=== PATIENT | male | born 1975 | race Caucasian/White ===

== ENCOUNTER 2018-08-21 12:59 | Emergency (ER) | payer MEDICARE, MEDICAID ==
[2018-08-21] MEDS ORDERED: IPRATROPIUM/ALBUTEROL 0.5-2.5 MG/3 ML AMPUL NEB ONE ×2 (14:32→15:34)
[2018-08-21] MEDS ORDERED: METHYLPREDNISOLONE INJ 125 MG/2 ML SDV IV ONE (14:33)
[2018-08-21] MEDS ORDERED: MAGNESIUM SULFATE/D5W 1 GM/100 ML RTUPB IV ONE (14:34)
--- NOTE | 2018-08-21 14:35 | ER Document Report ---
ED Medical Screen (RME) - General Chief Complaint: Cough Stated Complaint: ACHING Time Seen by Provider: 08/21/18 14:31 Mode of Arrival: Ambulatory Information source: Patient Notes: This is a 43-year-old man with a history of obstructive sleep apnea, COPD (continues to smoke), presents to the emergency room with shortness of breath, persistent cough, sore throat, ear pain. Patient states he just returned from [place]. He states his symptoms started with nasal congestion. TRAVEL OUTSIDE OF THE [place] IN LAST 30 DAYS: Yes - Related Data Allergies/Adverse Reactions: Penicillins Allergy (Mild, Verified 08/21/18 14:30) fluticasone [From Advair Diskus] Allergy (Verified 08/21/18 14:30) swelling salmeterol [From Advair Diskus] Allergy (Verified 08/21/18 14:30) swelling Past Medical History - Social History Chew tobacco use (# tins/day): No Frequency of alcohol use: None Drug Abuse: None - Past Medical History Cardiac Medical History: Reports: Hx Hypercholesterolemia, Hx Hypertension Pulmonary Medical History: Reports: Hx Asthma, Hx COPD, Hx Pneumonia Endocrine Medical History: Reports: Hx Diabetes Mellitus Type 1 Renal/ Medical History: Denies: Hx Peritoneal Dialysis Psychiatric Medical History: Reports: Hx Anxiety, Hx Depression Past Surgical History: Reports: Hx Abdominal Surgery - hernia - Immunizations Hx Diphtheria, Pertussis, Tetanus Vaccination: Yes - unk Physical Exam - Vital signs Vitals: Temp Pulse Resp BP Pulse Ox 99.4 F 96 20 148/70 H 91 L 08/21/18 13:35 08/21/18 13:35 08/21/18 13:35 08/21/18 13:35 08/21/18 13:35 Course - Vital Signs Vital signs: Temp Pulse Resp BP Pulse Ox 99.4 F 96 20 148/70 H 91 L 08/21/18 13:35 08/21/18 13:35 08/21/18 13:35 08/21/18 13:35 08/21/18 13:35
--- NOTE | 2018-08-21 15:02 | RADIOLOGY REPORT (SQ) ---
EXAM DESCRIPTION: CHEST 2 VIEWS COMPLETED DATE/TIME: 08/21/2018 2:44 pm REASON FOR STUDY: sob COMPARISON: 06/29/2016 EXAM PARAMETERS: NUMBER OF VIEWS: two views TECHNIQUE: Digital Frontal and Lateral radiographic views of the chest acquired. RADIATION DOSE: NA LIMITATIONS: none FINDINGS: LUNGS AND PLEURA: Interstitial markings are prominent but unchanged from prior study most likely chronic. No acute consolidation or effusions. No pneumothorax. MEDIASTINUM AND HILAR STRUCTURES: No masses or contour abnormalities. HEART AND VASCULAR STRUCTURES: Heart normal size. No evidence for failure. BONES: No acute findings. HARDWARE: None in the chest. OTHER: No other significant finding. IMPRESSION: Chronic changes bilaterally. No acute findings. TECHNICAL DOCUMENTATION: JOB ID: [id number] [employer] All Rights Reserved Reading location - IP/workstation name: [email or web address]
[2018-08-21 15:15] LABS: ABSOLUTE BASOPHILS # (AUTO) 0.1 10^3/uL (0.0-0.2); ABSOLUTE EOSINOPHILS # (AUTO) 0.2 10^3/uL (0.0-0.6); ABSOLUTE LYMPHOCYTES (AUTO) 1.3 10^3/uL (0.5-4.7); ABSOLUTE MONOCYTES (AUTO) 1.3 10^3/uL (0.1-1.4); ABSOLUTE NEUT (AUTO) 8.9 10^3/uL (1.7-8.2); BASOPHILS % (AUTO) 0.8 % (0-2); EOSINOPHILS % (AUTO) 1.5 % (0-6); HEMATOCRIT 43.1 % (37.9-51.0); HEMOGLOBIN 14.3 g/dL (13.5-17.0); LYMPHOCYTES % (AUTO) 10.7 % (13-45); MEAN CORPUSCULAR HEMOGLOBIN 28.8 pg (27.0-33.4); MEAN CORPUSCULAR HGB CONC 33.2 g/dL (32.0-36.0); MEAN CORPUSCULAR VOLUME 87 fl (80-97); MONOCYTES % (AUTO) 11.4 % (3-13); RED BLOOD COUNT 4.96 10^6/uL (4.35-5.55); RED CELL DISTRIBUTION WIDTH 14.9 % (11.5-14.0); SEGMENTED NEUTROPHILS % (AUTO) 75.6 % (42-78); TOTAL CELLS COUNTED % (AUTO) 100 %; WHITE BLOOD COUNT 11.8 10^3/uL (4.0-10.5)
[2018-08-21 15:33] LABS: ALANINE AMINOTRANSFERASE 29 U/L (21-72); ALKALINE PHOSPHATASE 92 U/L (38-126); ANION GAP 7 (5-19); ASPARTATE AMINO TRANSFERASE 29 U/L (17-59); BILIRUBIN,DIRECT 0.3 mg/dL (0.0-0.4); BILIRUBIN,TOTAL 0.5 mg/dL (0.2-1.3); BLOOD UREA NITROGEN 6 mg/dL (7-20); CALCIUM 8.4 mg/dL (8.4-10.2); CARBON DIOXIDE 33 mmol/L (22-30); CHLORIDE 98 mmol/L (98-107); GLUCOSE 95 mg/dL (75-110); POTASSIUM 4.7 mmol/L (3.6-5.0); SODIUM 138.4 mmol/L (137-145); TOTAL PROTEIN 6.9 g/dL (6.3-8.2)
[2018-08-21 16:14] LABS: PLATELET COUNT 228 10^3/uL (150-450)
[2018-08-21 17:23] LABS: A TYPE INFLUENZA AG NEGATIVE (NEGATIVE); B INFLUENZA AG NEGATIVE (NEGATIVE)
--- NOTE | 2018-08-21 18:41 | ER Document Report ---
ED General - General Chief Complaint: Cough Stated Complaint: ACHING Time Seen by Provider: 08/21/18 14:31 Primary Care Provider: DEONTE SINGH PA-C [Primary Care Provider] - Follow up as needed Mode of Arrival: Ambulatory TRAVEL OUTSIDE OF THE [place] IN LAST 30 DAYS: Yes - HPI Notes: Patient is a 43-year-old gentleman who presents to the emergency department for evaluation of cough, sore throat, difficulty breathing. He has a history of COPD and sleep apnea. He admits he is not completely compliant with his BiPAP. The patient did however, just returned on a flight from [place] yesterday. He denies any known fevers although he did state he felt chilled. He has had some nausea but no emesis. Normal bowel movements. He does have some pain in his upper abdomen bilaterally. He describes it as a soreness that is worse with coughing. - Related Data Allergies/Adverse Reactions: Penicillins Allergy (Mild, Verified 08/21/18 14:30) fluticasone [From Advair Diskus] Allergy (Verified 08/21/18 14:30) swelling salmeterol [From Advair Diskus] Allergy (Verified 08/21/18 14:30) swelling Past Medical History - General Information source: Patient, Relative - Social History Smoking Status: Current Every Day Smoker Chew tobacco use (# tins/day): No Frequency of alcohol use: None Drug Abuse: None Family History: Reviewed & Not Pertinent Patient has suicidal ideation: No Patient has homicidal ideation: No - Past Medical History Cardiac Medical History: Reports: Hx Hypercholesterolemia, Hx Hypertension Pulmonary Medical History: Reports: Hx Asthma, Hx COPD, Hx Pneumonia Endocrine Medical History: Reports: Hx Diabetes Mellitus Type 1 Renal/ Medical History: Denies: Hx Peritoneal Dialysis Psychiatric Medical History: Reports: Hx Anxiety, Hx Depression Past Surgical History: Reports: Hx Abdominal Surgery - hernia - Immunizations Hx Diphtheria, Pertussis, Tetanus Vaccination: Yes - unk Hx Pneumococcal Vaccination: 08/07/10 Review of Systems - Review of Systems Constitutional: Chills, Malaise EENT: Nose congestion, Throat pain Cardiovascular: No symptoms reported Respiratory: See HPI, Cough Gastrointestinal: See HPI Genitourinary: No symptoms reported Skin: No symptoms reported Neurological/Psychological: No symptoms reported Physical Exam - Vital signs Vitals: Temp Pulse Resp BP Pulse Ox 99.4 F 96 20 148/70 H 91 L 08/21/18 13:35 08/21/18 13:35 08/21/18 13:35 08/21/18 13:35 08/21/18 13:35 Notes: Reviewed, please refer to vital sign chart - Notes Notes: Vital signs reviewed, please refer to chart. Patient is normocephalic, atraumatic. Pupils equal round, reactive to light. Neck is supple without meningismus. Heart is regular rate and rhythm. Lungs are clear to auscultation bilaterally. Abdomen is soft, nontender, normoactive bowel sounds throughout. Extremities without cyanosis, clubbing, edema. Posterior calves are nontender. Peripheral pulses are equal. Skin is warm and dry. Patient is awake, alert, neurological exam is nonfocal. Course - Re-evaluation Re-evalutation: 08/21/18 18:40 Patient presents emergency department for evaluation of cough and shortness of breath. He is morbidly obese. I am slightly concerned with the pulmonary embolus and this obese patient with limited mobility and given a recent extended flight. Laboratory investigations and imaging were largely unremarkable. Given this information I did feel inclined to perform a CT angiogram of the chest. That is ordered. Patient is remained stable. 08/21/18 21:08 Patient remained stable. Chest x-ray is unremarkable. CT angiogram reveals possible early pneumonia in the right base. Treated here with Levaquin, albuterol. We will send him home with prescription for Levaquin and inhaler to go. He is to follow-up with his doctor this week, return to the ED with worsening or new concerning symptoms. - Vital Signs Vital signs: Temp Pulse Resp BP Pulse Ox 99.4 F 96 20 148/70 H 91 L 08/21/18 13:35 08/21/18 13:35 08/21/18 13:35 08/21/18 13:35 08/21/18 13:35 - Laboratory Result Diagrams: 08/21/18 15:00 08/21/18 15:00 Laboratory results interpreted by me: 08/21/18 08/21/18 15:00 15:00 WBC 11.8 H RDW 14.9 H Lymphocytes % 10.7 L Absolute Neutrophils 8.9 H Carbon Dioxide 33 H BUN 6 L - Diagnostic Test Radiology reviewed: Reports reviewed - No acute disease - EKG Interpretation by Me Additional EKG results interpreted by me: 08/21/18 18:39 Sinus mechanism with a rate of 88 bpm. Normal axis. Incomplete right bundle branch block. No acute ST changes concerning for ischemia or infarction. No significant change compared to prior study of June 29, 2016 Discharge - Discharge Clinical Impression: Pneumonia Disposition: HOME, SELF-CARE Instructions: Pneumonia ([facility]) Additional Instructions: Take Levaquin as directed, starting tomorrow. Use albuterol inhaler as needed for shortness of breath. Follow-up with your doctor next week. Return to the emergency department with worsening or new concerning symptoms of any sort. Forms: Smoking Cessation Education Referrals: DEONTE SINGH PA-C [Primary Care Provider] - Follow up as needed
--- NOTE | 2018-08-21 20:12 | RADIOLOGY REPORT (SQ) ---
CT CHEST ANGIOGRAPHY WITHOUT THEN WITH IV CONTRAST HISTORY: Shortness of breath. COMPARISON: None. TECHNIQUE: CT angiogram of the chest with IV contrast. 3-D MIP images were obtained in coronal and sagittal reconstructions. This exam was performed according to our departmental dose-optimization program, which includes automated exposure control, adjustment of the mA and/or kV according to patient size and/or use of iterative reconstruction technique. FINDINGS: No filling defects are identified in the pulmonary trunk, main left and right pulmonary arteries, or the segmental branches. There is mild bilateral hilar adenopathy. No mediastinal or axillary adenopathy is seen. The heart size is normal without pericardial effusion. There is an area of groundglass opacity/consolidation in the posterior right lower lobe. No pleural effusions or pneumothorax. No acute osseous findings are seen. The upper abdomen demonstrates no acute findings. IMPRESSION: 1. No acute pulmonary embolism. 2. Focal area of groundglass opacity/consolidation in the posterior right lower lobe. This may represent atelectasis or infection.
[2018-08-21] MEDS ORDERED: LEVOFLOXACIN 750 MG TABLET PO ONE (20:47)
[2018-08-21] MEDS ORDERED: ALBUTEROL SULFATE HFA (90 MCG/PUFF) 8 GM MDI (1 MDI/ER DISP) IH SCH (21:00)
--- NOTE | 2018-08-21 21:19 | EKG REPORT ---
SEVERITY:- NORMAL ECG - SINUS RHYTHM : Confirmed by: Shelley Da Silva MD 21-Aug-2018 21:18:46
[2018-08-21 22:11] VITALS: BP 125/95
== END 2018-08-21 22:15 | disposition home or self-care (01) ==
LOC: ER 12:59
DX: J18.9 Pneumonia, unspecified organism (principal); J44.0 Chronic obstructive pulmonary disease with (acute) lower respiratory infection; R05 Cough; J02.9 Acute pharyngitis, unspecified; R68.83 Chills (without fever); R11.0 Nausea; R10.11 Right upper quadrant pain; R10.12 Left upper quadrant pain; R53.81 Other malaise; R06.02 Shortness of breath; E66.01 Morbid (severe) obesity due to excess calories; F17.200 Nicotine dependence, unspecified, uncomplicated; I45.10 Unspecified right bundle-branch block; I10 Essential (primary) hypertension; E10.9 Type 1 diabetes mellitus without complications; G47.30 Sleep apnea, unspecified; Z91.19 Patient's noncompliance with other medical treatment and regimen
CPT/HCPCS: 93005; 94640 ×2; 99284; 96365; 36415; 85025; 80053; 84484; 87804; 71046; 71275; 93010; J3475; A9270 ×2; J3490; J7620

== ENCOUNTER 2018-08-23 18:37 | Inpatient (IN) | payer MEDICARE, MEDICAID ==
[2018-08-23] MEDS ORDERED: METHYLPREDNISOLONE INJ 125 MG/2 ML SDV ONE (18:45)
[2018-08-23] MEDS ORDERED: IPRATROPIUM/ALBUTEROL 0.5-2.5 MG/3 ML AMPUL NEB ONE ×2 (18:45→18:49)
[2018-08-23] MEDS ORDERED: METHYLPREDNISOLONE INJ 125 MG/2 ML SDV IV ONE (18:49)
[2018-08-23] MEDS: ALBUTEROL SULFATE 0.083% NEB 2.5 MG/3 ML AMPUL NEB SCH (18:59)
[2018-08-23] MEDS ORDERED: RINGERS SOLUTION,LACTATED 2,000 ML IV ONE (19:10)
[2018-08-23] MEDS ORDERED: ALBUTEROL SULFATE 0.083% NEB 2.5 MG/3 ML AMPUL NEB ONE (19:11)
[2018-08-23] MEDS ORDERED: ACETAMINOPHEN 325 MG TABLET PO ONE (19:14)
--- NOTE | 2018-08-23 19:15 | ER Document Report ---
ED General - General Chief Complaint: Breathing Difficulty Stated Complaint: DIFFICULTY BREATHING Time Seen by Provider: 08/23/18 19:09 Cannot obtain history due to: Unstable vital signs Notes: Patient is a 43-year-old male with a past medical history of COPD, morbid obesity, hypertension, sleep apnea, presents complaining of fever, cough and increasing shortness of breath. Patient was seen 2 days ago for the same although states that his work of breathing has dramatically worsened in the last 48 hours. He was diagnosed with right lower lobe pneumonia based on CT 2 days ago, has been taking levofloxacin as prescribed states that this has not improved his symptoms. Nothing has been noted to worsen his symptoms. His family states that he has been this sick in the past with influenza and actually apparently had to be intubated in the ICU in that context. Patient has been trying Tylenol at home for fever with some improvement. No vomiting or diarrhea. History is otherwise limited secondary to the degree of the patient's distress at time of presentation. TRAVEL OUTSIDE OF THE [place] IN LAST 30 DAYS: No - Related Data Allergies/Adverse Reactions: Penicillins Allergy (Mild, Verified 08/21/18 14:30) fluticasone [From Advair Diskus] Allergy (Verified 08/21/18 14:30) swelling salmeterol [From Advair Diskus] Allergy (Verified 08/21/18 14:30) swelling Past Medical History - General Information source: Patient - Social History Smoking Status: Current Every Day Smoker Frequency of alcohol use: None Drug Abuse: None Lives with: Family Family History: Reviewed & Not Pertinent Patient has suicidal ideation: No Patient has homicidal ideation: No - Past Medical History Cardiac Medical History: Reports: Hx Hypercholesterolemia, Hx Hypertension Pulmonary Medical History: Reports: Hx Asthma, Hx COPD, Hx Pneumonia Endocrine Medical History: Reports: Hx Diabetes Mellitus Type 1 Renal/ Medical History: Denies: Hx Peritoneal Dialysis Psychiatric Medical History: Reports: Hx Anxiety, Hx Depression Past Surgical History: Reports: Hx Abdominal Surgery - hernia - Immunizations Hx Diphtheria, Pertussis, Tetanus Vaccination: Yes - unk Hx Pneumococcal Vaccination: 08/07/10 Review of Systems - Review of Systems Notes: Constitutional: Positive for fever. HENT: Positive for sore throat. Eyes: Negative for visual changes. Cardiovascular: Negative for chest pain. Respiratory: Positive for shortness of breath. Gastrointestinal: Negative for abdominal pain, vomiting or diarrhea. Genitourinary: Negative for dysuria. Musculoskeletal: Negative for back pain. Skin: Negative for rash. Neurological: Negative for headaches, weakness or numbness. 10 point ROS negative except as marked above and in HPI. Physical Exam - Vital signs Vitals: Temp Pulse Resp BP Pulse Ox 100.9 F H 111 H 19 133/72 H 87 L 08/23/18 18:40 08/23/18 18:40 08/23/18 18:40 08/23/18 18:40 08/23/18 18:40 Interpretation: Tachycardic, Hypoxic, Tachypneic, Febrile Notes: PHYSICAL EXAMINATION: GENERAL: Appears unwell, in moderate to severe respiratory distress. Diaphoreti c HEAD: Atraumatic, normocephalic. EYES: Pupils equal round and reactive to light, extraocular movements intact, sclera anicteric, conjunctiva are normal. ENT: nares patent, oropharynx clear without exudates. Moderately dry mucous membranes. NECK: Normal range of motion, supple without lymphadenopathy LUNGS: Moderate to severe respiratory distress. Diminished air movement in all lung lopez. Coarse expiratory wheezing in all lung lopez. HEART: Regular tachycardia without murmurs ABDOMEN: Soft, nontender, normoactive bowel sounds. No guarding, no rebound. No masses appreciated. EXTREMITIES: Normal range of motion, no pitting or edema. No cyanosis. NEUROLOGICAL: No focal neurological deficits. Moves all extremities spontaneously and on command. PSYCH: Moderately anxious SKIN: Warm, diaphoretic, normal turgor, no rashes or lesions noted. Course - Re-evaluation Re-evalutation: 08/23/18 19:13 Documentation is delayed as I been at this patient's bedside immediately upon his arrival to the room. In summary the patient presents in moderate to severe respiratory distress, diffusely diaphoretic, very poor air movement in all lung lopez with coarse expiratory wheezing in all lung lopez. Saturating 87% on room air and does not have an normal oxygen dependency. He was diagnosed with influenza 3 days ago based on CT results of the chest showing a right lower lobe groundglass opacity. He has been taking levofloxacin as prescribed dramatically states since that time. Patient was immediately placed on continuous albuterol and ipratropium. BiPAP is been called to the room to bring patient's work of breathing into a normal range. Stat portal chest x-ray pending. Will obtain broad laboratories including cultures, venous blood gas, lactate, CBC, CMP and repeat influenza testing. Will give 2 g of magnesium, 125 mg of Solu-Medrol, begin IV fluid resuscitation and give antipyretics as patient is noted to be febrile to 100.9 F. 08/23/18 19:33 Patient's work of breathing much improved on BiPAP. Continues to have coarse wheezing in all lung lopez but has air movement in all lopez at this point. Continuous nebulizers ongoing through BiPAP. Magnesium infusing. I have updated the patient and family on care plan. Suspect the patient has probable influenza as opposed to a true pneumonia as this would be an unusual presentation of this particular given that his chest x-ray does not appear any worse than 2 days ago. 08/23/18 20:08 Patient's clinical work of breathing continues to improve. Currently saturating 85% on 40% FiO2, heart rate has decreased down to 91. Labs overall unrem arkable. Hypercapnia noted on venous blood gas although no change in pH, suspect chronic retention secondary to obesity hypoventilation, COPD and sleep apnea. Will discuss with the hospitalist for admission. 08/23/18 21:19 Patient has been accepted by Dr. Mccormick for admission. - Vital Signs Vital signs: Temp Pulse Resp BP Pulse Ox 98.8 F 72 20 128/64 H 93 08/24/18 00:51 08/24/18 02:00 08/24/18 00:51 08/24/18 00:51 08/24/18 00:51 - Laboratory Result Diagrams: 08/23/18 18:49 08/23/18 18:49 Laboratory results interpreted by me: 08/23/18 08/23/18 08/23/18 18:49 18:49 18:49 Hgb 13.0 L RDW 14.6 H Lymphocytes % 10.6 L Monocytes % 13.3 H VBG pCO2 67.5 H* VBG HCO3 34.4 H Sodium 135.2 L Chloride 95 L Carbon Dioxide 35 H BUN 6 L Glucose 148 H Calcium 8.3 L Total Protein 5.7 L Albumin 3.2 L - Diagnostic Test Radiology reviewed: Image reviewed, Reports reviewed Radiology results interpreted by me: 08/23/18 19:15 Chest x-ray: Unchanged from previous. No distinct infiltrate. Critical Care Note - Critical Care Note Total time excluding time spent on procedures (mins): 50 Comments: Critical care time spent obtaining history from patient or surrogate, discussions with consultants, development of treatment plan with patient or surrogate, evaluation of patient's response to treatment, examination of patient, ordering and performing treatments and interventions, ordering and review of laboratory studies, re-evaluation of patient's condition, ordering and review of radiographic studies and review of old charts Discharge - Discharge Clinical Impression: Respiratory distress, COPD exacerbation Sepsis Qualifiers: Sepsis type: sepsis due to unspecified organism Qualified Code(s): A41.9 - Sepsis, unspecified organism Condition: Fair Disposition: ADMITTED INPATIENT Admitting Provider: Hospitalist Unit Admitted: [facility]
[2018-08-23] MEDS: MAGNESIUM SULFATE/D5W 1 GM/100 ML RTUPB IV SCH ×2 (19:19→19:40)
[2018-08-23 19:45] LABS: ABSOLUTE EOSINOPHILS # (AUTO) 0.1 10^3/uL (0.0-0.6); ABSOLUTE LYMPHOCYTES (AUTO) 0.9 10^3/uL (0.5-4.7); ABSOLUTE MONOCYTES (AUTO) 1.1 10^3/uL (0.1-1.4); BASOPHILS % (AUTO) 0.3 % (0-2); EOSINOPHILS % (AUTO) 1.4 % (0-6); LYMPHOCYTES % (AUTO) 10.6 % (13-45); MEAN CORPUSCULAR HEMOGLOBIN 28.9 pg (27.0-33.4); MEAN CORPUSCULAR HGB CONC 33.3 g/dL (32.0-36.0); MEAN CORPUSCULAR VOLUME 87 fl (80-97); MONOCYTES % (AUTO) 13.3 % (3-13); PLATELET COUNT 206 10^3/uL (150-450); RED BLOOD COUNT 4.49 10^6/uL (4.35-5.55); RED CELL DISTRIBUTION WIDTH 14.6 % (11.5-14.0); SEGMENTED NEUTROPHILS % (AUTO) 74.4 % (42-78); TOTAL CELLS COUNTED % (AUTO) 100 %; WHITE BLOOD COUNT 8.1 10^3/uL (4.0-10.5)
--- NOTE | 2018-08-23 19:45 | RADIOLOGY REPORT (SQ) ---
EXAM DESCRIPTION: CHEST SINGLE VIEW COMPLETED DATE/TIME: 08/23/2018 7:09 pm REASON FOR STUDY: sob COMPARISON: 08/21/2018 TECHNIQUE: Single frontal radiographic view of the chest acquired. NUMBER OF VIEWS: One view. LIMITATIONS: None. FINDINGS: LUNGS AND PLEURA: No pneumothorax. Similar chronic interstitial markings. No consolidati on or pleural effusion. MEDIASTINUM AND HILAR STRUCTURES: Stable. HEART AND VASCULAR STRUCTURES: Stable. BONES: No acute findings. HARDWARE: None in the chest. OTHER: No other significant finding. IMPRESSION: NO ACUTE FINDINGS. TECHNICAL DOCUMENTATION: JOB ID: [id number] [place]-72 2010 [employer]- All Rights Reserved Reading location - IP/workstation name: [email or web address]
[2018-08-23 19:50] LABS: VENOUS BLOOD HCO3 34.4 mmol/L (20-32); VENOUS BLOOD PH 7.33 (7.30-7.42)
[2018-08-23 19:54] LABS: VENOUS BLOOD PCO2 67.5 mmHg (35-63)
[2018-08-23 19:55] LABS: ALANINE AMINOTRANSFERASE 46 U/L (21-72); ALBUMIN 3.2 g/dL (3.5-5.0); ALKALINE PHOSPHATASE 86 U/L (38-126); ANION GAP 5 (5-19); ASPARTATE AMINO TRANSFERASE 35 U/L (17-59); BILIRUBIN,DIRECT 0.2 mg/dL (0.0-0.4); BILIRUBIN,TOTAL 0.3 mg/dL (0.2-1.3); BLOOD UREA NITROGEN 6 mg/dL (7-20); CALCIUM 8.3 mg/dL (8.4-10.2); CARBON DIOXIDE 35 mmol/L (22-30); CHLORIDE 95 mmol/L (98-107); GLUCOSE 148 mg/dL (75-110); POTASSIUM 4.5 mmol/L (3.6-5.0); SODIUM 135.2 mmol/L (137-145); TOTAL PROTEIN 5.7 g/dL (6.3-8.2)
[2018-08-23] MEDS ORDERED: ACETAMINOPHEN 325 MG TABLET PO PRN (21:14)
[2018-08-23] MEDS ORDERED: GUAIFENESIN SYRP 200 MG/10 ML UDC PO PRN (21:14)
[2018-08-23] MEDS ORDERED: IPRATROPIUM/ALBUTEROL 0.5-2.5 MG/3 ML AMPUL NEB PRN (21:14)
[2018-08-23] MEDS ORDERED: LEVOFLOXACIN 750 MG/D5W RTU 750 MG/150 ML RTUPB IV SCH (22:00)
[2018-08-23] MEDS ORDERED: OLANZAPINE 5 MG TABLET PO ONE (22:00)
[2018-08-23] MEDS: IPRATROPIUM/ALBUTEROL 0.5-2.5 MG/3 ML AMPUL NEB SCH (22:31)
[2018-08-23 22:39] LABS: A TYPE INFLUENZA AG NEGATIVE (NEGATIVE); B INFLUENZA AG NEGATIVE (NEGATIVE)
[2018-08-23] MEDS: HEPARIN SOD (PORCINE) 5,000 UNIT/ML 1 ML SYRINGE SUBCUT SCH (22:49)
[2018-08-24] MEDS ORDERED: OLANZAPINE 5 MG TABLET PO ONE (00:15)
--- NOTE | 2018-08-24 01:19 | EKG REPORT ---
SEVERITY:- OTHERWISE NORMAL ECG - SINUS TACHYCARDIA : Confirmed by: Shelley Da Silva MD 24-Aug-2018 01:18:27
[2018-08-24] MEDS: IPRATROPIUM/ALBUTEROL 0.5-2.5 MG/3 ML AMPUL NEB SCH ×4 (02:16→21:35)
--- NOTE | 2018-08-24 04:53 | PDOC H&P ---
History of Present Illness Admission Date/PCP: 08/23/18 21:33 DEONTE RAMIREZ PA-C Patient complains of: Shortness of breath History of Present Illness: TURNER BUSBY is a 43 year old male with a past medical history of schizophrenia, diabetes, morbid obesity, obstructive sleep apnea, COPD, obesity hypoventilation syndrome and tobacco dependence. Patient presents with 72 hours of shortness of breath prompting him to seek evaluation with primary care Deonte ramirez diagnosing right-sided pneumonia he has been treated with Levaquin without significant improvement he is referred to the emergency department for evaluation where he is found to have acute on chronic hypercapnic respiratory failure with a PCO2 of 67. He started on BiPAP, empiric antibiotics and referred to the hospitalist for admission. Patient denies chest pain nausea vomiting. He admits to non compliance with BiPAP. Past Medical History Cardiac Medical History: Reports: Hyperlipidema, Hypertension Pulmonary Medical History: Reports: Asthma, Chronic Obstructive Pulmonary Disease (COPD), Pneumonia Endocrine Medical History: Reports: Diabetes Mellitus Type 1 Psychiatric Medical History: Reports: Depression Social History Information Source: Patient, [facility] Lives with: Family Smoking Status: Current Every Day Smoker Cigarettes Packs Per Day: 1 Frequency of Alcohol Use: None Hx Recreational Drug Use: No Hx Prescription Drug Abuse: No - Advance Directive Resuscitation Status: Full Code Family History Family History: COPD Parental Family History Reviewed: Yes Children Family History Reviewed: Yes Sibling(s) Family History Reviewed.: Yes Medication/Allergy Home Medications: Clonazepam 0.5 mg PO DAILY PRN 06/14/11 Duloxetine HCl [Cymbalta] 60 mg PO DAILY 06/14/11 Trazodone HCl 300 mg PO QPM 06/14/11 Albuterol Sulfate [Ventolin Hfa 8 gm Mdi (1 Mdi/ER Disp)] 2 puff IH ASDIR PRN 08/21/18 Amlodipine Besylate/Benazepril [Amlodipine-Benazepril 5-20 mg] 2 cap PO DAILY 08/21/18 Atorvastatin Calcium [Lipitor 20 mg Tablet] 20 mg PO QHS 08/21/18 Cariprazine HCl [Vraylar] 1 cap PO DAILY 08/21/18 Doxepin HCl 150 mg PO QHS 08/21/18 Levofloxacin [Levaquin 750 mg Tablet] 750 mg PO DAILY #4 tablet 08/21/18 Metformin HCl 500 mg PO DAILY 08/21/18 Allergies/Adverse Reactions: Penicillins Allergy (Mild, Verified 08/21/18 14:30) fluticasone [From Advair Diskus] Allergy (Verified 08/21/18 14:30) swelling salmeterol [From Advair Diskus] Allergy (Verified 08/21/18 14:30) swelling Review of Systems ROS unobtainable: Due to mental status - Poor historian with shortness of breath on BiPAP, Other Constitutional: PRESENT: as per HPI, fatigue, fever(s) Eyes: ABSENT: visual disturbances Ears: ABSENT: hearing changes Cardiovascular: ABSENT: chest pain, dyspnea on exertion, edema, orthropnea, palpitations Respiratory: PRESENT: as per HPI, cough, dyspnea, sputum Gastrointestinal: ABSENT: abdominal pain, constipation, diarrhea, hematemesis, hematochezia, nausea, vomiting Genitourinary: ABSENT: dysuria, hematuria Musculoskeletal: ABSENT: joint swelling Integumentary: ABSENT: rash, wounds Neurological: ABSENT: abnormal gait, abnormal speech, confusion, dizziness, focal weakness, syncope Psychiatric: ABSENT: anxiety, depression, homidical ideation, suicidal ideation Endocrine: ABSENT: cold intolerance, heat intolerance, polydipsia, polyuria Hematologic/Lymphatic: ABSENT: easy bleeding, easy bruising Physical Exam Vital Signs: Temp Pulse Resp BP Pulse Ox 97.5 F 66 13 140/66 H 94 08/24/18 03:24 08/24/18 03:24 08/24/18 03:24 08/24/18 03:24 08/24/18 03:24 Intake & Output 08/22/18 08/23/18 08/24/18 11:59 11:59 11:59 Intake Total 100 Output Total 640 Balance -540 Weight 150.3 kg General appearance: PRESENT: cooperative, mild distress, morbidly obese Head exam: PRESENT: atraumatic, normocephalic Eye exam: PRESENT: conjunctiva pink, EOMI, PERRLA. ABSENT: scleral icterus Ear exam: PRESENT: normal external ear exam Mouth exam: PRESENT: moist, tongue midline Neck exam: ABSENT: carotid bruit, JVD, lymphadenopathy, thyromegaly Respiratory exam: PRESENT: accessory muscle use, crackles, prolonged expiratory phas, rhonchi, symmetrical, tachypnea Cardiovascular exam: PRESENT: RRR. ABSENT: diastolic murmur, rubs, systolic murmur Pulses: PRESENT: normal dorsalis pedis pul Vascular exam: PRESENT: normal capillary refill GI/Abdominal exam: PRESENT: normal bowel sounds, soft. ABSENT: distended, guarding, mass, organolmegaly, rebound, tenderness Rectal exam: PRESENT: deferred Extremities exam: PRESENT: full ROM. ABSENT: calf tenderness, clubbing, pedal edema Neurological exam: PRESENT: alert, awake, oriented to person, oriented to place, oriented to time, oriented to situation, CN II-XII grossly intact. ABSENT: motor sensory deficit Psychiatric exam: PRESENT: appropriate affect, normal mood. ABSENT: homicidal ideation, suicidal ideation Skin exam: PRESENT: dry, intact, warm. ABSENT: cyanosis, rash Results Laboratory Results: 08/23/18 18:49 08/23/18 18:49 08/23/18 08/23/18 08/23/18 18:49 18:49 18:49 WBC 8.1 RBC 4.49 Hgb 13.0 L Hct 39.0 MCV 87 MCH 28.9 MCHC 33.3 RDW 14.6 H Plt Count 206 Seg Neutrophils % 74.4 Lymphocytes % 10.6 L Monocytes % 13.3 H Eosinophils % 1.4 Basophils % 0.3 Absolute Neutrophils 6.0 Absolute Lymphocytes 0.9 Absolute Monocytes 1.1 Absolute Eosinophils 0.1 Absolute Basophils 0.0 VBG pH VBG pCO2 VBG HCO3 VBG Base Excess Sodium 135.2 L Potassium 4.5 Chloride 95 L Carbon Dioxide 35 H Anion Gap 5 BUN 6 L Creatinine 0.77 Est GFR ( Amer) > 60 Est GFR (Non-Af Amer) > 60 Glucose 148 H Lactic Acid 1.3 Calcium 8.3 L Total Bilirubin 0.3 AST 35 ALT 46 Alkaline Phosphatase 86 Total Protein 5.7 L Albumin 3.2 L 08/23/18 18:49 WBC RBC Hgb Hct MCV MCH MCHC RDW Plt Count Seg Neutrophils % Lymphocytes % Monocytes % Eosinophils % Basophils % Absolute Neutrophils Absolute Lymphocytes Absolute Monocytes Absolute Eosinophils Absolute Basophils VBG pH 7.33 VBG pCO2 67.5 H* VBG HCO3 34.4 H VBG Base Excess 6.0 Sodium Potassium Chloride Carbon Dioxide Anion Gap BUN Creatinine Est GFR ( Amer) Est GFR (Non-Af Amer) Glucose Lactic Acid Calcium Total Bilirubin AST ALT Alkaline Phosphatase Total Protein Albumin Impressions: Chest X-Ray 08/23/18 18:49 IMPRESSION: NO ACUTE FINDINGS. Assessment & Plan - Diagnosis (1) Pneumonia Is this a current diagnosis for this admission?: Yes Plan: Pneumonia care set, Rocephin and azithromycin ordered after Levaquin failure, i ncentive spirometry, flutter valve, BiPAP, follow-up CBC and blood culture (2) Sepsis Qualifiers: Sepsis type: sepsis due to unspecified organism Qualified Code(s): A41.9 - Sepsis, unspecified organism Is this a current diagnosis for this admission?: Yes Plan: Secondary to #1, with tachypnea, tachycardia, fever and hypercapnic respiratory failure. (3) Obesity hypoventilation syndrome Is this a current diagnosis for this admission?: Yes Plan: BiPAP, remove pillow avoiding cervical flexion (4) Hypercapnic respiratory failure Is this a current diagnosis for this admission?: Yes Plan: BiPAP and education (5) COPD exacerbation Is this a current diagnosis for this admission?: Yes Plan: Flutter valve, consider prednisone, albuterol and Atrovent ordered. - Time Time Spent: 50 to 70 Minutes - Inpatient Certification Medical Necessity: Need Close Monitoring Due to Risk of Patient Decompensation
[2018-08-24] MEDS ORDERED: PREDNISONE 20 MG TABLET PO ONE (05:30)
[2018-08-24] MEDS: HEPARIN SOD (PORCINE) 5,000 UNIT/ML 1 ML SYRINGE SUBCUT SCH ×3 (05:42→21:35)
[2018-08-24 06:32] LABS: ABSOLUTE LYMPHOCYTES (AUTO) 0.6 10^3/uL (0.5-4.7); ABSOLUTE MONOCYTES (AUTO) 0.4 10^3/uL (0.1-1.4); ABSOLUTE NEUT (AUTO) 5.8 10^3/uL (1.7-8.2); BASOPHILS % (AUTO) 0.4 % (0-2); HEMATOCRIT 42.1 % (37.9-51.0); HEMOGLOBIN 14.1 g/dL (13.5-17.0); LYMPHOCYTES % (AUTO) 8.2 % (13-45); MEAN CORPUSCULAR HEMOGLOBIN 29.1 pg (27.0-33.4); MEAN CORPUSCULAR HGB CONC 33.5 g/dL (32.0-36.0); MEAN CORPUSCULAR VOLUME 87 fl (80-97); MONOCYTES % (AUTO) 6.4 % (3-13); PLATELET COUNT 178 10^3/uL (150-450); RED BLOOD COUNT 4.85 10^6/uL (4.35-5.55); TOTAL CELLS COUNTED % (AUTO) 100 %; WHITE BLOOD COUNT 6.8 10^3/uL (4.0-10.5)
[2018-08-24 06:40] LABS: ANION GAP 7 (5-19); BLOOD UREA NITROGEN 7 mg/dL (7-20); CALCIUM 8.7 mg/dL (8.4-10.2); CARBON DIOXIDE 36 mmol/L (22-30); CHLORIDE 99 mmol/L (98-107); GLUCOSE 139 mg/dL (75-110); POTASSIUM 5.2 mmol/L (3.6-5.0)
[2018-08-24] MEDS: CEFTRIAXONE 1 GM/D5W RTU 1 GM/50 ML RTUPB IV SCH (07:33)
[2018-08-24] MEDS: AZITHROMYCIN 500 MG in DEXTROSE 5%-WATER 250 ML IV SCH (08:50)
[2018-08-24] MEDS: OLANZAPINE 5 MG TABLET PO SCH (11:00)
[2018-08-24] MEDS ORDERED: (PENDING PHARMACY ID) (Clonazepam [Klonopin] 0.5 MG) PO PRN (14:29)
[2018-08-24] MEDS ORDERED: ALBUTEROL SULFATE HFA (90 MCG/PUFF) 200 PUFF/8.5 GM MDI IH PRN (14:29)
[2018-08-24] MEDS ORDERED: DEXTROSE 50%-WATER 25 GM/50 ML DISP.SYRIN IV PRN ×2 (14:30)
[2018-08-24] MEDS ORDERED: DEXTROSE 40% GEL 15 GM TUBE PO PRN ×2 (14:30)
[2018-08-24] MEDS ORDERED: GLUCAGON,HUMAN RECOMB 1 MG INJ IM PRN (14:30)
--- NOTE | 2018-08-24 14:45 | PDOC PROGRESS REPORT ---
Subjective Progress Note for:: 08/24/18 Subjective:: 49-year-old male with history of schizophrenia diabetes mellitus morbid obesity obstructive sleep apnea, COPD chronic smoker admitted for shortness of breath. He was diagnosed with right-sided pneumonia and was started on levofloxacin 11 without any significant improvement he came to the emergency room and PCO2 is 67. He was placed on BiPAP started on antibiotic therapy. Today his pulse ox is 94% on 4 L. Patient is comfortably in the bed . Family is concerned about influenza and pneumonia explained to them that flu is negative and the chest x-ray on this admission was negative but there is a mentioning of possible pneumonia in the CT scan done on . Family is happy with the explanation and they are also happy that he is getting IV antibiotic therapy. Reason For Visit: [facility] PNEUMONIA Physical Exam Vital Signs: Temp Pulse Resp BP Pulse Ox 97.3 F 86 18 133/63 H 92 08/24/18 11:09 08/24/18 11:09 08/24/18 11:09 08/24/18 11:09 08/24/18 11:09 Intake & Output 08/23/18 08/24/18 08/25/18 06:59 06:59 06:59 Intake Total 100 2550 Output Total 2115 -2014 2550 Weight 151.8 kg General appearance: PRESENT: no acute distress, other - Morbidly obese male comfortable in the bed. Head exam: PRESENT: atraumatic Eye exam: PRESENT: PERRLA Mouth exam: PRESENT: moist, tongue midline Neck exam: ABSENT: carotid bruit, JVD, lymphadenopathy, thyromegaly Respiratory exam: PRESENT: decreased breath sounds Cardiovascular exam: PRESENT: tachycardia GI/Abdominal exam: PRESENT: other - Morbidly obese abdomen bowel sounds are present. Extremities exam: PRESENT: full ROM. ABSENT: calf tenderness, clubbing, pedal edema Neurological exam: PRESENT: alert, awake, oriented to person, oriented to place, oriented to time, oriented to situation, CN II-XII grossly intact. ABSENT: motor sensory deficit Psychiatric exam: PRESENT: appropriate affect, normal mood. ABSENT: homicidal ideation, suicidal ideation Results Laboratory Results: 08/24/18 05:28 08/24/18 05:28 08/23/18 08/23/18 08/23/18 18:49 18:49 18:49 WBC 8.1 RBC 4.49 Hgb 13.0 L Hct 39.0 MCV 87 MCH 28.9 MCHC 33.3 RDW 14.6 H Plt Count 206 Seg Neutrophils % 74.4 Lymphocytes % 10.6 L Monocytes % 13.3 H Eosinophils % 1.4 Basophils % 0.3 Absolute Neutrophils 6.0 Absolute Lymphocytes 0.9 Absolute Monocytes 1.1 Absolute Eosinophils 0.1 Absolute Basophils 0.0 VBG pH VBG pCO2 VBG HCO3 VBG Base Excess Sodium 135.2 L Potassium 4.5 Chloride 95 L Carbon Dioxide 35 H Anion Gap 5 BUN 6 L Creatinine 0.77 Est GFR ( Amer) > 60 Est GFR (Non-Af Amer) > 60 Glucose 148 H Lactic Acid 1.3 Calcium 8.3 L Total Bilirubin 0.3 AST 35 ALT 46 Alkaline Phosphatase 86 Total Protein 5.7 L Albumin 3.2 L 08/23/18 08/24/18 08/24/18 18:49 05:28 05:28 WBC 6.8 RBC 4.85 Hgb 14.1 Hct 42.1 MCV 87 MCH 29.1 MCHC 33.5 RDW 15.0 H Plt Count 178 Seg Neutrophils % 85.0 H Lymphocytes % 8.2 L Monocytes % 6.4 Eosinophils % 0.0 Basophils % 0.4 Absolute Neutrophils 5.8 Absolute Lymphocytes 0.6 Absolute Monocytes 0.4 Absolute Eosinophils 0.0 Absolute Basophils 0.0 VBG pH 7.33 VBG pCO2 67.5 H* VBG HCO3 34.4 H VBG Base Excess 6.0 Sodium 142.0 Potassium 5.2 H Chloride 99 Carbon Dioxide 36 H Anion Gap 7 BUN 7 Creatinine 0.64 Est GFR ( Amer) > 60 Est GFR (Non-Af Amer) > 60 Glucose 139 H Lactic Acid Calcium 8.7 Total Bilirubin AST ALT Alkaline Phosphatase Total Protein Albumin Impressions: Chest X-Ray 08/23/18 18:49 IMPRESSION: NO ACUTE FINDINGS. Assessment & Plan - Diagnosis (1) Pneumonia Is this a current diagnosis for this admission?: Yes Plan: 08/24/2018-during this admission chest x-ray was normal-are negative for pneumonia but CT scan was done on 08/21 indicates there is a possible right lower lobe pneumonia patient came in with hypoxia to the emergency room with failed outpatient antibiotic therapy he was started on IV Rocephin and Zithromax last night. Blood cultures are negative so far. Influenza negative. Plan is to continue the present management. (2) Sepsis Qualifiers: Sepsis type: sepsis due to unspecified organism Qualified Code(s): A41.9 - Sepsis, unspecified organism Is this a current diagnosis for this admission?: Yes Plan: 08/24/2018-patient came in with tachycardia tachypnea fever and with hypercapnic respiratory failure suggesting there is underlying possibility of sepsis. Blood cultures are negative so far. Patient is presently on IV Rocephin and Zithromax IV. Plan is to continue the present management. Lactic acid level at the time of admission is 1.3. (3) Obesity hypoventilation syndrome Is this a current diagnosis for this admission?: Yes Plan: 08/24/2018-patient has obesity hypoventilation syndrome uses CPAP at night. Because of the hypoxia and hypercapnia is on BiPAP during this hospital stay he is not on oxygen at home but uses CPAP at night. Presently is on 4 L oxygen pulse ox is 94%. (4) COPD exacerbation Is this a current diagnosis for this admission?: Yes Plan: 08/24/2018-patient has history of COPD secondary to chronic smoking he is on albuterol and Atrovent nebulizations along with flutter wall. pt is on prednisone 20 mg p.o. twice daily. Managed to continue the present management. (5) Morbid obesity with BMI of 50.0-59.9, adult Is this a current diagnosis for this admission?: Yes Plan: 08/24/2018-patient has history of morbid obesity with BMI of more than 50 diet exercise weight loss and lifestyle modifications are discussed. Dietary consult was requested. (6) Diabetes Qualifiers: Diabetes mellitus type: type 2 Is this a current diagnosis for this admission?: Yes Plan: 08/24/2018-patient has history of diabetes, on metformin at home. Which is on hold today/during this admission. Was started on insulin sliding scale before meals and at bedtime plan to check his hemoglobin A1c tomorrow. (7) Pneumonia Is this a current diagnosis for this admission?: Yes Plan: 08/24/2018-the CT scan was done on 08/21/2018 indicates patient might have right lower lobe pneumonia possibly community-acquired pneumonia he was discharged from the ER on Levaquin not responded well to the treatment came back with a hypercapnia and admitted with IV Rocephin 1 g daily and Zithromax 5 mg IV daily. Blood cultures are negative. Plan is to continue the present management. - Time Time Spent with patient: 15-24 minutes Medications reviewed and adjusted accordingly: Yes Anticipated discharge: Home
[2018-08-24] MEDS ORDERED: CLONAZEPAM 1 MG TABLET PO PRN (15:29)
[2018-08-24] MEDS ORDERED: SODIUM POLYSTYRENE SULFONATE 15 GM/60 ML PO ONE (16:00)
[2018-08-24] MEDS: INSULIN REG, HUMAN 100 UNIT/ML 3 ML VIAL (PYX) SUBCUT SCH ×2 (17:08→22:00)
[2018-08-24] MEDS: PREDNISONE 20 MG TABLET PO SCH (17:24)
[2018-08-24] MEDS: DOXEPIN HCL 25 MG CAPSULE PO SCH (21:32)
[2018-08-24] MEDS: TRAZODONE HCL 50 MG TABLET PO SCH (21:33)
[2018-08-24] MEDS: ATORVASTATIN CALCIUM 20 MG TABLET PO SCH (21:36)
[2018-08-24] MEDS ORDERED: (PENDING PHARMACY ID) (Doxepin Hcl [Doxepin Hcl] 150 MG) PO SCH (22:00)
[2018-08-24] MEDS ORDERED: (PENDING PHARMACY ID) (Trazodone Hcl [Desyrel] 300 MG) PO SCH (22:00)
[2018-08-25] MEDS: IPRATROPIUM/ALBUTEROL 0.5-2.5 MG/3 ML AMPUL NEB SCH ×4 (03:00→21:15)
[2018-08-25] MEDS: HEPARIN SOD (PORCINE) 5,000 UNIT/ML 1 ML SYRINGE SUBCUT SCH ×3 (05:26→22:18)
[2018-08-25 06:55] LABS: ABSOLUTE LYMPHOCYTES (AUTO) 1.7 10^3/uL (0.5-4.7); ABSOLUTE MONOCYTES (AUTO) 1.3 10^3/uL (0.1-1.4); ABSOLUTE NEUT (AUTO) 8.9 10^3/uL (1.7-8.2); BASOPHILS % (AUTO) 0.3 % (0-2); EOSINOPHILS % (AUTO) 0.2 % (0-6); HEMATOCRIT 41.9 % (37.9-51.0); HEMOGLOBIN 13.9 g/dL (13.5-17.0); LYMPHOCYTES % (AUTO) 14.1 % (13-45); MEAN CORPUSCULAR HGB CONC 33.2 g/dL (32.0-36.0); MEAN CORPUSCULAR VOLUME 87 fl (80-97); PLATELET COUNT 231 10^3/uL (150-450); RED CELL DISTRIBUTION WIDTH 15.1 % (11.5-14.0); SEGMENTED NEUTROPHILS % (AUTO) 74.4 % (42-78); TOTAL CELLS COUNTED % (AUTO) 100 %; WHITE BLOOD COUNT 11.9 10^3/uL (4.0-10.5)
[2018-08-25 07:13] LABS: ALANINE AMINOTRANSFERASE 39 U/L (21-72); ALBUMIN 3.8 g/dL (3.5-5.0); ALKALINE PHOSPHATASE 81 U/L (38-126); ASPARTATE AMINO TRANSFERASE 30 U/L (17-59); BILIRUBIN,DIRECT 0.2 mg/dL (0.0-0.4); BILIRUBIN,TOTAL 0.4 mg/dL (0.2-1.3); BLOOD UREA NITROGEN 15 mg/dL (7-20); CALCIUM 8.7 mg/dL (8.4-10.2); CHLORIDE 95 mmol/L (98-107); GLUCOSE 97 mg/dL (75-110); POTASSIUM 4.6 mmol/L (3.6-5.0); SODIUM 140.9 mmol/L (137-145); TOTAL PROTEIN 6.8 g/dL (6.3-8.2)
[2018-08-25 07:40] LABS: ANION GAP 5 (5-19)
[2018-08-25 07:41] LABS: CARBON DIOXIDE 41 mmol/L (22-30)
[2018-08-25] MEDS: INSULIN REG, HUMAN 100 UNIT/ML 3 ML VIAL (PYX) SUBCUT SCH ×4 (07:47→22:18)
[2018-08-25] MEDS: CEFTRIAXONE 1 GM/D5W RTU 1 GM/50 ML RTUPB IV SCH (07:54)
[2018-08-25] MEDS: AZITHROMYCIN 500 MG in DEXTROSE 5%-WATER 250 ML IV SCH (09:07)
[2018-08-25] MEDS: OLANZAPINE 5 MG TABLET PO SCH (09:09)
[2018-08-25] MEDS: PREDNISONE 20 MG TABLET PO SCH ×2 (09:09→17:21)
[2018-08-25] MEDS: DULOXETINE HCL 30 MG CAPSULE.DR PO SCH (09:10)
[2018-08-25] MEDS ORDERED: (PENDING PHARMACY ID) (Cariprazine Hcl [Vraylar] 3 MG) PO SCH (10:00)
[2018-08-25] MEDS ORDERED: LEVALBUTEROL HCL NEB 1.25 MG/3 ML AMPUL NEB PRN (11:17)
--- NOTE | 2018-08-25 11:25 | PDOC PROGRESS REPORT ---
Subjective Progress Note for:: 08/25/18 Subjective:: 49-year-old male with history of schizophrenia diabetes mellitus morbid obesity obstructive sleep apnea, COPD chronic smoker admitted for shortness of breath. He was diagnosed with right-sided pneumonia and was started on levofloxacin 11 without any significant improvement he came to the emergency room and PCO2 is 67. He was placed on BiPAP started on antibiotic therapy. Today his pulse ox is 94% on 4 L. Patient is comfortably in the bed . Family is concerned about influenza and pneumonia explained to them that flu is negative and the chest x-ray on this admission was negative but there is a mentioning of possible pneumonia in the CT scan done on . Family is happy with the explanation and they are also happy that he is getting IV antibiotic therapy. 08/25/2018-no acute events in the last 24 hours. Patient is afebril ,T-max is 98.7. Patient is still on BiPAP. At rest his pulse oxes are within normal range with activity his pulse ox is dropping and is become tachypneic. Reason For Visit: [facility] PNEUMONIA Physical Exam Vital Signs: Temp Pulse Resp BP Pulse Ox 98.7 F 89 18 147/70 H 96 08/25/18 07:24 08/25/18 08:40 08/25/18 08:40 08/25/18 07:24 08/25/18 08:40 Intake & Output 08/24/18 08/25/18 08/26/18 06:59 06:59 06:59 Intake Total 100 3963 300 Output Total 2115 1000 -2014 2963 300 Weight 151.8 kg 155.2 kg General appearance: PRESENT: other - Morbidly obese male. Head exam: PRESENT: atraumatic Eye exam: PRESENT: PERRLA Mouth exam: PRESENT: moist, tongue midline Neck exam: ABSENT: carotid bruit, JVD, lymphadenopathy, thyromegaly Respiratory exam: PRESENT: decreased breath sounds, wheezes Cardiovascular exam: PRESENT: tachycardia GI/Abdominal exam: PRESENT: other - Morbidly obese abdomen bowel sounds are present. Extremities exam: PRESENT: full ROM. ABSENT: calf tenderness, clubbing, pedal edema Neurological exam: PRESENT: alert, awake, oriented to person, oriented to place, oriented to time, oriented to situation, CN II-XII grossly intact. ABSENT: motor sensory deficit Psychiatric exam: PRESENT: appropriate affect, normal mood. ABSENT: homicidal ideation, suicidal ideation Results Laboratory Results: 08/25/18 06:07 08/25/18 06:07 08/25/18 08/25/18 06:07 06:07 WBC 11.9 H RBC 4.80 Hgb 13.9 Hct 41.9 MCV 87 MCH 29.0 MCHC 33.2 RDW 15.1 H Plt Count 231 Seg Neutrophils % 74.4 Lymphocytes % 14.1 Monocytes % 11.0 Eosinophils % 0.2 Basophils % 0.3 Absolute Neutrophils 8.9 H Absolute Lymphocytes 1.7 Absolute Monocytes 1.3 Absolute Eosinophils 0.0 Absolute Basophils 0.0 Sodium 140.9 Potassium 4.6 Chloride 95 L Carbon Dioxide 41 H* Anion Gap 5 BUN 15 Creatinine 0.78 Est GFR ( Amer) > 60 Est GFR (Non-Af Amer) > 60 Glucose 97 Calcium 8.7 Magnesium 2.0 Total Bilirubin 0.4 AST 30 ALT 39 Alkaline Phosphatase 81 Total Protein 6.8 Albumin 3.8 Impressions: Chest X-Ray 08/23/18 18:49 IMPRESSION: NO ACUTE FINDINGS. Assessment & Plan - Diagnosis (1) Pneumonia Is this a current diagnosis for this admission?: Yes Plan: 08/24/2018-during this admission chest x-ray was normal-are negative for pneumonia but CT scan was done on 08/21 indicates there is a possible right lower lobe pneumonia patient came in with hypoxia to the emergency room with failed outpatient antibiotic therapy he was started on IV Rocephin and Zithromax last night. Blood cultures are negative so far. Influenza negative. Plan is to continue the present management. 08/25/2018-CT scan was done on 08/21/2018 shows groundglass opacification/consolidation in the right lower extremity. Presently is on IV Rocephin and IV Zithromax the cultures are negative. Patient is afebrile. WBC is 11,900 may be because he is on prednisone. Influenza is negative. Plan is to continue the present management. This may be community-acquired pneumonia. (2) Sepsis Qualifiers: Sepsis type: sepsis due to unspecified organism Qualified Code(s): A41.9 - Sepsis, unspecified organism Is this a current diagnosis for this admission?: Yes Plan: 08/24/2018-patient came in with tachycardia tachypnea fever and with hypercapnic respiratory failure suggesting there is underlying possibility of sepsis. Blood cultures are negative so far. Patient is presently on IV Rocephin and Zithromax IV. Plan is to continue the present management. Lactic acid level at the time of admission is 1.3. 08/25/2018-patient is admitted with signs and symptoms of sepsis so far the cultures are negative. CT scan of the chest shows right lower lobe pneumonia. Plan is to continue the present management. (3) Obesity hypoventilation syndrome Is this a current diagnosis for this admission?: Yes Plan: 08/24/2018-patient has obesity hypoventilation syndrome uses CPAP at night. Because of the hypoxia and hypercapnia is on BiPAP during this hospital stay he is not on oxygen at home but uses CPAP at night. Presently is on 4 L oxygen pulse ox is 94%. 08/25/2018-patient has morbid obesity and he has obesity hypoventilation syndrome uses a CPAP at night at home. Here in this hospital is on BiPAP on as-needed basis. Plan is to continue the present management. (4) COPD exacerbation Is this a current diagnosis for this admission?: Yes Plan: 08/24/2018-patient has history of COPD secondary to chronic smoking he is on albuterol and Atrovent nebulizations along with flutter valve therapy. pt is on prednisone 20 mg p.o. twice daily. Managed to continue the present management. 08/25/2018-patient has history of COPD secondary to chronic smoking. Presently is on albuterol and Atrovent nebulizations along with flutter valve therapy, patient is also receiving prednisone 10 mg p.o. twice daily. (5) Morbid obesity with BMI of 50.0-59.9, adult Is this a current diagnosis for this admission?: Yes Plan: 08/24/2018-patient has history of morbid obesity with BMI of more than 50 diet exercise weight loss and lifestyle modifications are discussed. Dietary consult was requested. 08/25/2018-diet exercise weight loss lifestyle modifications are again discussed with the patient. (6) Diabetes Qualifiers: Diabetes mellitus type: type 2 Is this a current diagnosis for this admission?: Yes Plan: 08/24/2018-patient has history of diabetes, on metformin at home. Which is on hold today/during this admission. Was started on insulin sliding scale before meals and at bedtime plan to check his hemoglobin A1c tomorrow. 08/25/2018-hemoglobin A1c is 5.9. Patient is on metformin at home which was on hold presently on insulin sliding scale before meals and at bedtime. Plan is to continue the present management. (7) Pneumonia Is this a current diagnosis for this admission?: Yes Plan: 08/24/2018-the CT scan was done on 08/21/2018 indicates patient might have right lower lobe pneumonia possibly community-acquired pneumonia he was discharged from the ER on Levaquin not responded well to the treatment came back with a hypercapnia and admitted with IV Rocephin 1 g daily and Zithromax 5 mg IV daily. Blood cultures are negative. Plan is to continue the present management. 08/25/2018-CT scan was done on 08/21/2018 shows possible right lower lobe pneumonia it may be community-acquired pneumonia cultures are negative. Unable to get any sputum cultures from the patient. Plan is to continue IV Rocephin and IV Zithromax. - Time Time Spent with patient: 15-24 minutes Smoking Cessation Education: over 10 minutes Medications reviewed and adjusted accordingly: Yes Anticipated discharge: Home
[2018-08-25] MEDS: ATORVASTATIN CALCIUM 20 MG TABLET PO SCH (22:18)
[2018-08-25] MEDS: DOXEPIN HCL 25 MG CAPSULE PO SCH (22:18)
[2018-08-25] MEDS: TRAZODONE HCL 50 MG TABLET PO SCH (22:18)
[2018-08-26] MEDS: IPRATROPIUM/ALBUTEROL 0.5-2.5 MG/3 ML AMPUL NEB SCH ×4 (01:32→21:12)
[2018-08-26] MEDS: HEPARIN SOD (PORCINE) 5,000 UNIT/ML 1 ML SYRINGE SUBCUT SCH ×3 (05:12→21:07)
[2018-08-26 05:38] LABS: ABSOLUTE EOSINOPHILS # (AUTO) 0.1 10^3/uL (0.0-0.6); ABSOLUTE LYMPHOCYTES (AUTO) 2.3 10^3/uL (0.5-4.7); ABSOLUTE MONOCYTES (AUTO) 1.3 10^3/uL (0.1-1.4); ABSOLUTE NEUT (AUTO) 5.6 10^3/uL (1.7-8.2); BASOPHILS % (AUTO) 0.4 % (0-2); EOSINOPHILS % (AUTO) 0.6 % (0-6); HEMATOCRIT 41.4 % (37.9-51.0); HEMOGLOBIN 13.9 g/dL (13.5-17.0); MEAN CORPUSCULAR HGB CONC 33.5 g/dL (32.0-36.0); MEAN CORPUSCULAR VOLUME 87 fl (80-97); MONOCYTES % (AUTO) 13.8 % (3-13); PLATELET COUNT 248 10^3/uL (150-450); RED BLOOD COUNT 4.79 10^6/uL (4.35-5.55); RED CELL DISTRIBUTION WIDTH 15.1 % (11.5-14.0); SEGMENTED NEUTROPHILS % (AUTO) 60.2 % (42-78); TOTAL CELLS COUNTED % (AUTO) 100 %; WHITE BLOOD COUNT 9.3 10^3/uL (4.0-10.5)
[2018-08-26 06:04] LABS: ALANINE AMINOTRANSFERASE 33 U/L (21-72); ALBUMIN 3.6 g/dL (3.5-5.0); ALKALINE PHOSPHATASE 78 U/L (38-126); ANION GAP 7 (5-19); ASPARTATE AMINO TRANSFERASE 27 U/L (17-59); BILIRUBIN,DIRECT 0.3 mg/dL (0.0-0.4); BILIRUBIN,TOTAL 0.5 mg/dL (0.2-1.3); BLOOD UREA NITROGEN 15 mg/dL (7-20); CALCIUM 8.9 mg/dL (8.4-10.2); CARBON DIOXIDE 39 mmol/L (22-30); CHLORIDE 96 mmol/L (98-107); GLUCOSE 123 mg/dL (75-110); POTASSIUM 4.2 mmol/L (3.6-5.0); SODIUM 142.3 mmol/L (137-145); TOTAL PROTEIN 6.2 g/dL (6.3-8.2)
[2018-08-26] MEDS: INSULIN REG, HUMAN 100 UNIT/ML 3 ML VIAL (PYX) SUBCUT SCH ×4 (08:33→21:12)
[2018-08-26] MEDS: CEFTRIAXONE 1 GM/D5W RTU 1 GM/50 ML RTUPB IV SCH (08:44)
[2018-08-26] MEDS: AZITHROMYCIN 500 MG in DEXTROSE 5%-WATER 250 ML IV SCH (09:55)
[2018-08-26] MEDS: OLANZAPINE 5 MG TABLET PO SCH (09:55)
[2018-08-26] MEDS: DULOXETINE HCL 30 MG CAPSULE.DR PO SCH (09:55)
[2018-08-26] MEDS: PREDNISONE 20 MG TABLET PO SCH (10:05)
--- NOTE | 2018-08-26 10:43 | PDOC PROGRESS REPORT ---
Subjective Progress Note for:: 08/26/18 Subjective:: 49-year-old male with history of schizophrenia diabetes mellitus morbid obesity obstructive sleep apnea, COPD chronic smoker admitted for shortness of breath. He was diagnosed with right-sided pneumonia and was started on levofloxacin 11 without any significant improvement he came to the emergency room and PCO2 is 67. He was placed on BiPAP started on antibiotic therapy. Today his pulse ox is 94% on 4 L. Patient is comfortably in the bed . Family is concerned about influenza and pneumonia explained to them that flu is negative and the chest x-ray on this admission was negative but there is a mentioning of possible pneumonia in the CT scan done on . Family is happy with the explanation and they are also happy that he is getting IV antibiotic therapy. 08/25/2018-no acute events in the last 24 hours. Patient is afebril ,T-max is 98.7. Patient is still on BiPAP. At rest his pulse oxes are within normal range with activity his pulse ox is dropping and is become tachypneic. 22,019-no acute events in the last 24 hours. Patient complains of mild tightness in the chest this morning. Other than doing well. He is off the BiPAP this morning. Pulse ox on 4 L is 98%. Plan is to repeat the chest x-ray today. Reason For Visit: [facility] PNEUMONIA Physical Exam Vital Signs: Temp Pulse Resp BP Pulse Ox 98.2 F 70 20 133/61 H 98 08/26/18 08:22 08/26/18 08:22 08/26/18 08:22 08/26/18 08:22 08/26/18 08:22 Intake & Output 08/25/18 08/26/18 08/27/18 06:59 06:59 06:59 Intake Total 3963 2188 50 Output Total 1000 500 Balance 2963 1688 50 Weight 155.2 kg 141.4 kg General appearance: PRESENT: other - Morbidly obese male comfortably in the bed. Head exam: PRESENT: atraumatic Eye exam: PRESENT: PERRLA Neck exam: ABSENT: carotid bruit, JVD, lymphadenopathy, thyromegaly Respiratory exam: PRESENT: decreased breath sounds, wheezes Cardiovascular exam: PRESENT: tachycardia GI/Abdominal exam: PRESENT: normal bowel sounds, soft. ABSENT: distended, guarding, mass, organolmegaly, rebound, tenderness Extremities exam: PRESENT: full ROM. ABSENT: calf tenderness, clubbing, pedal edema Neurological exam: PRESENT: alert, awake, oriented to person, oriented to place, oriented to time, oriented to situation, CN II-XII grossly intact. ABSENT: motor sensory deficit Psychiatric exam: PRESENT: appropriate affect, normal mood. ABSENT: homicidal ideation, suicidal ideation Results Laboratory Results: 08/26/18 05:23 08/26/18 05:23 08/26/18 08/26/18 05:23 05:23 WBC 9.3 RBC 4.79 Hgb 13.9 Hct 41.4 MCV 87 MCH 29.0 MCHC 33.5 RDW 15.1 H Plt Count 248 Seg Neutrophils % 60.2 Lymphocytes % 25.0 Monocytes % 13.8 H Eosinophils % 0.6 Basophils % 0.4 Absolute Neutrophils 5.6 Absolute Lymphocytes 2.3 Absolute Monocytes 1.3 Absolute Eosinophils 0.1 Absolute Basophils 0.0 Sodium 142.3 Potassium 4.2 Chloride 96 L Carbon Dioxide 39 H Anion Gap 7 BUN 15 Creatinine 0.71 Est GFR ( Amer) > 60 Est GFR (Non-Af Amer) > 60 Glucose 123 H Calcium 8.9 Magnesium 2.3 Total Bilirubin 0.5 AST 27 ALT 33 Alkaline Phosphatase 78 Total Protein 6.2 L Albumin 3.6 Impressions: Chest X-Ray 08/23/18 18:49 IMPRESSION: NO ACUTE FINDINGS. Assessment & Plan - Diagnosis (1) Pneumonia Is this a current diagnosis for this admission?: Yes Plan: 08/24/2018-during this admission chest x-ray was normal-are negative for pneumonia but CT scan was done on 08/21 indicates there is a possible right lower lobe pneumonia patient came in with hypoxia to the emergency room with failed outpatient antibiotic therapy he was started on IV Rocephin and Zithromax last night. Blood cultures are negative so far. Influenza negative. Plan is to continue the present management. 08/25/2018-CT scan was done on 08/21/2018 shows groundglass opacificatio n/consolidation in the right lower extremity. Presently is on IV Rocephin and IV Zithromax the cultures are negative. Patient is afebrile. WBC is 11,900 may be because he is on prednisone. Influenza is negative. Plan is to continue the present management. This may be community-acquired pneumonia. 08/26/2018-patient is getting treatment for community-acquired pneumonia. Patient is presently on IV Rocephin and IV Zithromax. Blood cultures are negative so far. WBC count is 7.3. Plan is to repeat the chest x-ray today. (2) Sepsis Qualifiers: Sepsis type: sepsis due to unspecified organism Qualified Code(s): A41.9 - Sepsis, unspecified organism Is this a current diagnosis for this admission?: Yes Plan: 08/24/2018-patient came in with tachycardia tachypnea fever and with hypercapnic respiratory failure suggesting there is underlying possibility of sepsis. Blood cultures are negative so far. Patient is presently on IV Rocephin and Zithromax IV. Plan is to continue the present management. Lactic acid level at the time of admission is 1.3. 08/25/2018-patient is admitted with signs and symptoms of sepsis so far the cultures are negative. CT scan of the chest shows right lower lobe pneumonia. Plan is to continue the present management. 08/26/2018-patient was admitted with tachycardia tachypnea, fever, hypercapnic respiratory failure with possible underlying sepsis. So far the cultures are negative patient became afebrile lactic acid level at the time of admission was negative in my opinion sepsis is resolving. (3) Obesity hypoventilation syndrome Is this a current diagnosis for this admission?: Yes Plan: 08/24/2018-patient has obesity hypoventilation syndrome uses CPAP at night. Because of the hypoxia and hypercapnia is on BiPAP during this hospital stay he is not on oxygen at home but uses CPAP at night. Presently is on 4 L oxygen pulse ox is 94%. 08/25/2018-patient has morbid obesity and he has obesity hypoventilation syndrome uses a CPAP at night at home. Here in this hospital is on BiPAP on as-needed basis. Plan is to continue the present management. 08/26/2018-patient has history of morbid obesity with hypo-ventilation syndrome, uses CPAP at night at home, patient is presently on BiPAP as needed. (4) COPD exacerbation Is this a current diagnosis for this admission?: Yes Plan: 08/24/2018-patient has history of COPD secondary to chronic smoking he is on albuterol and Atrovent nebulizations along with flutter valve therapy. pt is on prednisone 20 mg p.o. twice daily. Managed to continue the present management. 08/25/2018-patient has history of COPD secondary to chronic smoking. Presently is on albuterol and Atrovent nebulizations along with flutter valve therapy, patient is also receiving prednisone 10 mg p.o. twice daily. 08/26/2018-patient has history of COPD secondary to chronic smoking chest bilateral entry was decreased wheezing is much better compared to yesterday. Plan is to discontinue his p.o. prednisone. (5) Morbid obesity with BMI of 50.0-59.9, adult Is this a current diagnosis for this admission?: Yes (6) Diabetes Qualifiers: Diabetes mellitus type: type 2 Is this a current diagnosis for this admission?: Yes Plan: 08/24/2018-patient has history of diabetes, on metformin at home. Which is on hold today/during this admission. Was started on insulin sliding scale before meals and at bedtime plan to check his hemoglobin A1c tomorrow. 08/25/2018-hemoglobin A1c is 5.9. Patient is on metformin at home which was on hold presently on insulin sliding scale before meals and at bedtime. Plan is to continue the present management. 08/26/2018-patient's latest blood sugar is 115 well-controlled presently on insu tammy sliding scale before meals and at bedtime. Plan is to continue the present management. (7) Pneumonia Is this a current diagnosis for this admission?: Yes Plan: 08/24/2018-the CT scan was done on 08/21/2018 indicates patient might have right lower lobe pneumonia possibly community-acquired pneumonia he was discharged from the ER on Levaquin not responded well to the treatment came back with a hypercapnia and admitted with IV Rocephin 1 g daily and Zithromax 5 mg IV daily. Blood cultures are negative. Plan is to continue the present management. 08/25/2018-CT scan was done on 08/21/2018 shows possible right lower lobe pneu monia it may be community-acquired pneumonia cultures are negative. Unable to get any sputum cultures from the patient. Plan is to continue IV Rocephin and IV Zithromax. 08/26/2018-CT scan of the chest suggests right lower lobe pneumonia most likely community-acquired blood cultures are negative. Presently on IV Rocephin and IV Zithromax. Probably M discharge him home tomorrow on p.o. Levaquin. - Time Time Spent with patient: 15-24 minutes Smoking Cessation Education: over 10 minutes Medications reviewed and adjusted accordingly: Yes Anticipated discharge: Home
--- NOTE | 2018-08-26 15:26 | RADIOLOGY REPORT (SQ) ---
EXAM DESCRIPTION: CHEST 2 VIEWS COMPLETED DATE/TIME: 08/26/2018 3:15 pm REASON FOR STUDY: pneumonia COMPARISON: 08/23/2018 EXAM PARAMETERS: NUMBER OF VIEWS: two views TECHNIQUE: Digital Frontal and Lateral radiographic views of the chest acquired. RADIATION DOSE: NA LIMITATIONS: none FINDINGS: LUNGS AND PLEURA: No opacities, masses or pneumothorax. No pleural effusion. MEDIASTINUM AND HILAR STRUCTURES: No masses or contour abnormalities. HEART AND VASCULAR STRUCTURES: Cardiomegaly, unchanged finding. There is some attenuation of the ve ssels, stable finding. BONES: The osseous structures are stable in appearance. Old healed left rib fractures. HARDWARE: None in the chest. OTHER: No other significant finding. IMPRESSION: 1. Stable examination since the prior study dated 08/23/2018. No acute findings. TECHNICAL DOCUMENTATION: JOB ID: [id number] [employer]- All Rights Reserved Reading location - IP/workstation name: [email or web address]
[2018-08-26] MEDS: DOXEPIN HCL 25 MG CAPSULE PO SCH (21:06)
[2018-08-26] MEDS: ATORVASTATIN CALCIUM 20 MG TABLET PO SCH (21:07)
[2018-08-26] MEDS: TRAZODONE HCL 50 MG TABLET PO SCH (21:07)
[2018-08-27] MEDS: IPRATROPIUM/ALBUTEROL 0.5-2.5 MG/3 ML AMPUL NEB SCH ×3 (02:17→14:11)
[2018-08-27] MEDS: HEPARIN SOD (PORCINE) 5,000 UNIT/ML 1 ML SYRINGE SUBCUT SCH ×2 (05:53→13:47)
[2018-08-27 06:22] LABS: ABSOLUTE EOSINOPHILS # (AUTO) 0.2 10^3/uL (0.0-0.6); ABSOLUTE LYMPHOCYTES (AUTO) 2.5 10^3/uL (0.5-4.7); ABSOLUTE MONOCYTES (AUTO) 1.1 10^3/uL (0.1-1.4); ABSOLUTE NEUT (AUTO) 4.9 10^3/uL (1.7-8.2); BASOPHILS % (AUTO) 0.4 % (0-2); EOSINOPHILS % (AUTO) 2.1 % (0-6); HEMATOCRIT 42.7 % (37.9-51.0); HEMOGLOBIN 14.4 g/dL (13.5-17.0); LYMPHOCYTES % (AUTO) 28.6 % (13-45); MEAN CORPUSCULAR HEMOGLOBIN 29.2 pg (27.0-33.4); MEAN CORPUSCULAR HGB CONC 33.8 g/dL (32.0-36.0); MEAN CORPUSCULAR VOLUME 87 fl (80-97); MONOCYTES % (AUTO) 12.6 % (3-13); PLATELET COUNT 264 10^3/uL (150-450); RED BLOOD COUNT 4.93 10^6/uL (4.35-5.55); RED CELL DISTRIBUTION WIDTH 14.8 % (11.5-14.0); SEGMENTED NEUTROPHILS % (AUTO) 56.3 % (42-78); TOTAL CELLS COUNTED % (AUTO) 100 %; WHITE BLOOD COUNT 8.7 10^3/uL (4.0-10.5)
[2018-08-27 06:49] LABS: ALANINE AMINOTRANSFERASE 27 U/L (21-72); ALBUMIN 3.5 g/dL (3.5-5.0); ALKALINE PHOSPHATASE 80 U/L (38-126); ANION GAP 10 (5-19); ASPARTATE AMINO TRANSFERASE 23 U/L (17-59); BILIRUBIN,DIRECT 0.3 mg/dL (0.0-0.4); BILIRUBIN,TOTAL 0.5 mg/dL (0.2-1.3); BLOOD UREA NITROGEN 13 mg/dL (7-20); CALCIUM 8.7 mg/dL (8.4-10.2); CARBON DIOXIDE 35 mmol/L (22-30); CHLORIDE 97 mmol/L (98-107); GLUCOSE 79 mg/dL (75-110); POTASSIUM 4.4 mmol/L (3.6-5.0); SODIUM 141.5 mmol/L (137-145); TOTAL PROTEIN 6.1 g/dL (6.3-8.2)
[2018-08-27] MEDS: INSULIN REG, HUMAN 100 UNIT/ML 3 ML VIAL (PYX) SUBCUT SCH ×2 (07:21→13:03)
[2018-08-27] MEDS: CEFTRIAXONE 1 GM/D5W RTU 1 GM/50 ML RTUPB IV SCH (07:24)
[2018-08-27] MEDS: AZITHROMYCIN 500 MG in DEXTROSE 5%-WATER 250 ML IV SCH (08:21)
[2018-08-27] MEDS: OLANZAPINE 5 MG TABLET PO SCH (09:44)
[2018-08-27] MEDS: DULOXETINE HCL 30 MG CAPSULE.DR PO SCH (09:44)
[2018-08-27 16:50] VITALS: BP 128/64
--- NOTE | 2018-08-31 14:15 | PDOC DISCHARGE SUMMARY ---
General - Admit/Disc Date/PCP Admission Date/Primary Care Provider: 08/23/18 21:33 DEONTE RAMIREZ PA-C Discharge Date: 08/27/18 - Discharge Diagnosis (1) COPD exacerbation Is this a current diagnosis for this admission?: Yes (2) Diabetes Is this a current diagnosis for this admission?: Yes (3) Hypercapnic respiratory failure Is this a current diagnosis for this admission?: Yes (4) Morbid obesity with BMI of 50.0-59.9, adult Is this a current diagnosis for this admission?: Yes (5) Obesity hypoventilation syndrome Is this a current diagnosis for this admission?: Yes (6) Pneumonia Is this a current diagnosis for this admission?: Yes (7) Sepsis Is this a current diagnosis for this admission?: Yes - Additional Information Resuscitation Status: Full Code Discharge Diet: As Tolerated Discharge Activity: Activity As Tolerated Prescriptions: Levofloxacin [Levaquin 750 mg Tablet] 750 mg PO DAILY #2 tablet Home Medications: Albuterol Sulfate [Proair HFA Inhalation Aerosol 8.5 gm MDI] 1 puff IH Q4HP PRN 08/24/18 Atorvastatin Calcium [Lipitor 20 mg Tablet] 20 mg PO QHS 08/24/18 Cariprazine HCl [Vraylar] 3 mg PO DAILY 08/24/18 Clonazepam [Klonopin] 0.5 mg PO DAILYP PRN 08/24/18 Doxepin HCl 150 mg PO QHS 08/24/18 Duloxetine HCl [Cymbalta] 60 mg PO DAILY 08/24/18 Metformin HCl [Glucophage 500 mg Tablet] 500 mg PO BIDBS 08/24/18 Trazodone HCl [Desyrel] 300 mg PO QHS 08/24/18 Levofloxacin [Levaquin 750 mg Tablet] 750 mg PO DAILY #2 tablet 08/27/18 History of Present Illness History of Present Illness: TURNER BUSBY is a 43 year old male with a past medical history of schizophrenia, diabetes, morbid obesity, obstructive sleep apnea, COPD, obesity hypoventilation syndrome and tobacco dependence. Patient presents with 72 hours of shortness of breath prompting him to seek evaluation with primary care Deonte ramirez diagnosing right-sided pneumonia he has been treated with Levaquin without significant improvement he is referred to the emergency department for evaluation where he is found to have acute on chronic hypercapnic respiratory failure with a PCO2 of 67. He started on BiPAP, empiric antibiotics and referred to the hospitalist for admission. Patient denies chest pain nausea vomiting. He admits to noncompliance with BiPAP. Hospital Course Hospital Course: 43 y.o. morbidly obese M with a PMH of COPD, schizophrenia, diabetes presented to [facility] for hypoxic respiratory failure secondary to PNA and COPD exacerbation. The patient was treated for community acquired PNA with Rocephin and Azithromycin. Additionally, he was treated with nebulizers, steroids, and mucinex. He initially received continuous BIPAP but was able to transition to QHS CPAP. Unfortunately, due to his advanced lung disease, the patient was unable to wean from nasal cannula. He was sent home with home O2 and a prescription for Levaquin PO to complete his antibiotic regimen. On hospital day #3 the patient was deemed safe for discharge. For any further information regarding this patient's hospitalization, please refer to EMR. Physical Exam Vital Signs: Temp Pulse Resp BP Pulse Ox 97.6 F 96 15 128/64 H 94 08/27/18 16:48 08/27/18 16:48 08/27/18 16:48 08/27/18 16:48 08/27/18 16:48 Results Laboratory Results: 08/27/18 05:39 08/27/18 05:39 Impressions: Chest X-Ray 08/26/18 00:00 IMPRESSION: 1. Stable examination since the prior study dated 08/23/2018. No acute findings. Status: Imported from PACS Qualifiers - * PATIENT BEING DISCHARGED WITH ANY OF THE FOLLOWING DIAGNOSIS: No
== END 2018-08-27 17:24 | disposition home or self-care (01) | DRG 871 ==
LOC: ER 18:37 → EH 21:33 → 3S 08-24 00:45
PROVIDERS: ADMIT Internal Medicine; ATTEND Internal Medicine
DX: A41.9 Sepsis, unspecified organism (principal); J18.9 Pneumonia, unspecified organism; J96.92 Respiratory failure, unspecified with hypercapnia; J44.1 Chronic obstructive pulmonary disease with (acute) exacerbation; E66.2 Morbid (severe) obesity with alveolar hypoventilation; Z68.43 Body mass index [BMI] 50.0-59.9, adult; E78.00 Pure hypercholesterolemia, unspecified; E11.8 Type 2 diabetes mellitus with unspecified complications; I10 Essential (primary) hypertension; F41.8 Other specified anxiety disorders; F20.9 Schizophrenia, unspecified; F17.210 Nicotine dependence, cigarettes, uncomplicated
CPT/HCPCS: 36415; 71045; 71046; 71275; 80048; 80053; 82803; 82962; 83036; 83605; 83735; 84484; 85025; 87040; 87804; 93005; 93010; 94640; 94660; 94667; 94668; 94799; 96365; 96366; 96375; 99291; J0456; J0696; J1644; J1956; J2930; J3475; J3490; J7060; J7120; J7512; J7620

== ENCOUNTER 2019-12-14 11:49 | Emergency (ER) | payer MEDICARE, MEDICAID ==
[2019-12-14] MEDS ORDERED: ACETAMINOPHEN 325 MG TABLET PO ONE (13:34)
--- NOTE | 2019-12-14 13:34 | ER Document Report ---
ED Medical Screen (RME) - General Chief Complaint: Foreign Body in Eye Stated Complaint: FOREIGN MATTER IN LEFT EYE Time Seen by Provider: 12/14/19 13:32 Primary Care Provider: DEONTE SINGH PA-C [Primary Care Provider] - Follow up as needed Mode of Arrival: Ambulatory Information source: Patient Notes: 44-year-old male presented to ED for foreign body in his eye. He states he was weed eating last night something hit him in his eye and is had very bad vision since then. He is alert oriented respirations regular and unlabored speaking in full sentences. He states he needs careful consideration to get the foreign bodies out of his eyes. He is alert oriented respirations regular nonlabored I have greeted and performed a rapid initial assessment of this patient. A comprehensive ED assessment and evaluation of the patient, analysis of test results and completion of medical decision making process will be conducted by an additional ED providers. TRAVEL OUTSIDE OF THE [place] IN LAST 30 DAYS: No - Related Data Allergies/Adverse Reactions: Penicillins Allergy (Mild, Verified 08/21/18 14:30) fluticasone [From Advair Diskus] Allergy (Verified 08/21/18 14:30) swelling salmeterol [From Advair Diskus] Allergy (Verified 08/21/18 14:30) swelling Home Medications: cymbaltal 60mg. trazadone 300mg. atrovastatin 150. 2 inhalers Past Medical History - Social History Chew tobacco use (# tins/day): No Frequency of alcohol use: None Drug Abuse: None - Past Medical History Cardiac Medical History: Reports: Hx Hypercholesterolemia, Hx Hypertension Pulmonary Medical History: Reports: Hx Asthma, Hx COPD, Hx Pneumonia Endocrine Medical History: Reports: Hx Diabetes Mellitus Type 1 Renal/ Medical History: Denies: Hx Peritoneal Dialysis Psychiatric Medical History: Reports: Hx Anxiety, Hx Depression Past Surgical History: Reports: Hx Abdominal Surgery - hernia - Immunizations Hx Diphtheria, Pertussis, Tetanus Vaccination: Yes - unk Physical Exam - Vital signs Vitals: Temp Pulse Resp BP Pulse Ox 97.8 F 92 20 118/60 94 12/14/19 11:53 12/14/19 11:53 12/14/19 11:53 12/14/19 11:53 12/14/19 11:53 Course - Vital Signs Vital signs: Temp Pulse Resp BP Pulse Ox 97.8 F 92 20 118/60 94 12/14/19 13:22 12/14/19 11:53 12/14/19 11:53 12/14/19 11:53 12/14/19 11:53 Doctor's Discharge - Discharge Referrals: DEONTE SINGH PA-C [Primary Care Provider] - Follow up as needed
[2019-12-14] MEDS ORDERED: TETRACAINE HCL 0.5% OPH SOLN 4 ML OS ONE (14:36)
[2019-12-14] MEDS ORDERED: TETRACAINE HCL 0.5% OPH SOLN 4 ML ONE (14:37)
[2019-12-14] MEDS ORDERED: DIPH/PERTUSS(ACELL)/TETANUS VAC/PF 0.5 ML SYR (>=10YO) IM ONE (15:07)
--- NOTE | 2019-12-14 15:41 | RADIOLOGY REPORT (SQ) ---
EXAM DESCRIPTION: CT ORBIT/SELLA WITHOUT IMAGES COMPLETED DATE/TIME: 12/14/2019 3:32 pm REASON FOR STUDY: pain/possible fb COMPARISON: None. TECHNIQUE: Noncontrasted images through the orbits windowed for bone and soft tissue. Additional co naa and sagittal reconstructed images reviewed. All images stored on PACS. All CT scanners at this facility use dose modulation, iterative reconstruction, and/or weight based d osing when appropriate to reduce radiation dose to as low as reasonably achievable (ALARA). [facility]: Dose Right [facility]: CareDose [facility]: Dose Right [facility]: Teradose 4D [facility]: [employer] RADIATION DOSE: CT Rad equipment meets quality standard of care and radiation dose reduction techniq ues were employed. CTDIvol: 30.4 mGy. DLP: 372 mGy-cm. mGy. LIMITATIONS: None. FINDINGS: FACIAL BONES: No fracture or bone lesion. ORBITS: Intact. No fracture. Symmetric intact globes and retroorbital soft tissues. PARANASAL SINUSES: Clear. SOFT TISSUES: No mass or edema. INFERIOR BRAIN: Limited view. No acute findings. OTHER: No other significant finding. IMPRESSION: No foreign body or fracture. TECHNICAL DOCUMENTATION: JOB ID: [id number] Quality ID # [id number]: Final reports with documentation of one or more dose reduction techniques (e.g., Au tomated exposure control, adjustment of the mA and/or kV according to patient size, use of iterative reconstruction technique) 2010 [employer]- All Rights Reserved Reading location - IP/workstation name: [email or web address]
--- NOTE | 2019-12-14 16:09 | ER Document Report ---
ED General - General Chief Complaint: Foreign Body in Eye Stated Complaint: FOREIGN MATTER IN LEFT EYE Time Seen by Provider: 12/14/19 13:32 Primary Care Provider: DEONTE SINGH PA-C [Primary Care Provider] - Follow up as needed Mode of Arrival: Ambulatory TRAVEL OUTSIDE OF THE [place] IN LAST 30 DAYS: No - HPI Notes: Patient arrives with left eye pain. He states that he was "weed whacking" at home when he felt something hit him in his left eye. He states his vision does feel slightly blurry and he has constant pain in the left eye with a foreign bod y sensation. Patient states this sensation is constant. Is worse with blinking and better if he does not blink. Patient states the pain radiates into his head. It is moderate and sharp. He denies any other injuries. - Related Data Allergies/Adverse Reactions: Penicillins Allergy (Mild, Verified 08/21/18 14:30) fluticasone [From Advair Diskus] Allergy (Verified 08/21/18 14:30) swelling salmeterol [From Advair Diskus] Allergy (Verified 08/21/18 14:30) swelling Home Medications: cymbaltal 60mg. trazadone 300mg. atrovastatin 150. 2 inhalers Past Medical History - General Information source: Patient - Social History Smoking Status: Former Smoker Chew tobacco use (# tins/day): No Frequency of alcohol use: None Drug Abuse: None Family History: COPD Patient has homicidal ideation: No - Past Medical History Cardiac Medical History: Reports: Hx Hypercholesterolemia, Hx Hypertension Pulmonary Medical History: Reports: Hx Asthma, Hx COPD, Hx Pneumonia Endocrine Medical History: Reports: Hx Diabetes Mellitus Type 1 Renal/ Medical History: Denies: Hx Peritoneal Dialysis Psychiatric Medical History: Reports: Hx Anxiety, Hx Depression Past Surgical History: Reports: Hx Abdominal Surgery - hernia - Immunizations Hx Diphtheria, Pertussis, Tetanus Vaccination: Yes - unk Hx Pneumococcal Vaccination: 08/07/10 Review of Systems - Review of Systems Constitutional: denies: Chills, Fever Cardiovascular: denies: Chest pain, Palpitations Respiratory: denies: Cough, Short of breath -: Yes All other systems reviewed and negative Physical Exam - Vital signs Vitals: Temp Pulse Resp BP Pulse Ox 97.8 F 92 20 118/60 94 12/14/19 11:53 12/14/19 11:53 12/14/19 11:53 12/14/19 11:53 12/14/19 11:53 Interpretation: Normal - General General appearance: Appears well, Alert - HEENT Head: Normocephalic, Atraumatic Eyes: Other - Patient has a left lateral sub-conjunctival hematoma Conjunctiva: Other - See above Cornea: Normal. No: Corneal abrasion, Embedded foreign body, Flourescein stain uptake Extraocular movements intact: Yes Eyelashes: Normal Pupils: PERRL Visual acuity- Right eye: 20/40-1 Visual acuity- Left eye: 20/100 Visual acuity- Both eyes: 20/50 Mucous membranes: Moist - Respiratory Respiratory status: No respiratory distress Chest status: Nontender Breath sounds: Normal Chest palpation: Normal - Cardiovascular Rhythm: Regular Heart sounds: Normal auscultation Murmur: No - Abdominal Inspection: Normal Distension: No distension Bowel sounds: Normal Tenderness: Nontender Organomegaly: No organomegaly - Back Back: Normal, Nontender - Extremities General upper extremity: Normal inspection, Nontender, Normal color, Normal ROM, Normal temperature General lower extremity: Normal inspection, Nontender, Normal color, Normal ROM, Normal temperature, Normal weight bearing. No: Peng's sign - Neurological Neuro grossly intact: Yes Cognition: Normal Orientation: AAOx4 Rule Coma Scale Eye Opening: Spontaneous Kulwant Coma Scale Verbal: Oriented Kulwant Coma Scale Motor: Obeys Commands Rule Coma Scale Total: 15 Speech: Normal Motor strength normal: LUE, RUE, LLE, RLE Sensory: Normal - Psychological Associated symptoms: Normal affect, Normal mood - Skin Skin Temperature: Warm Skin Moisture: Dry Skin Color: Normal Course - Re-evaluation Re-evalutation: 12/14/19 16:06 Patient arrives after being hit in the left eye with a foreign body. No foreign body is evidenced on slit lamp exam I also everted his lids with no foreign body seen. CT scan shows no evidence of foreign body. I did discuss the patient with the processor helper who will see the patient in the morning. - Vital Signs Vital signs: Temp Pulse Resp BP Pulse Ox 97.8 F 92 20 118/60 94 12/14/19 13:22 12/14/19 11:53 12/14/19 11:53 12/14/19 11:53 12/14/19 11:53 - Diagnostic Test Radiology reviewed: Image reviewed, Reports reviewed Discharge - Discharge Clinical Impression: Subconjunctival hemorrhage of left eye, Morbid obesity with BMI of 50.0-59.9, adult Condition: Stable Disposition: HOME, SELF-CARE Instructions: Subconjunctival Hemorrhage ([facility]) Additional Instructions: Please go to Dr. Woo's office at 8 AM tomorrow Prescriptions: Tramadol HCl [Ultram] 50 mg PO Q6 PRN 3 Days #12 tablet PRN Reason: Moxifloxacin HCl [Vigamox 0.5% Oph Soln 3 ml] 2 drop OS Q2 #1 bottle Forms: Return to Work Referrals: DEONTE SINGH PA-C [Primary Care Provider] - Follow up as needed REYNOLD WOO MD [ACTIVE STAFF] - 12/15/19 8:00 am
[2019-12-14 16:48] VITALS: BP 112/61
== END 2019-12-14 16:48 | disposition home or self-care (01) ==
LOC: ER 11:49
DX: H11.32 Conjunctival hemorrhage, left eye (principal); H57.12 Ocular pain, left eye; W20.8XXA Other cause of strike by thrown, projected or falling object, initial encounter; Y93.H9 Activity, other involving exterior property and land maintenance, building and construction; E66.01 Morbid (severe) obesity due to excess calories; Z68.43 Body mass index [BMI] 50.0-59.9, adult; E78.00 Pure hypercholesterolemia, unspecified; I10 Essential (primary) hypertension; E10.9 Type 1 diabetes mellitus without complications; F32.9 Major depressive disorder, single episode, unspecified; F41.9 Anxiety disorder, unspecified; Z79.899 Other long term (current) drug therapy; Z87.891 Personal history of nicotine dependence; Z23 Encounter for immunization; Z88.0 Allergy status to penicillin; Z88.8 Allergy status to other drugs, medicaments and biological substances
CPT/HCPCS: 99283; 70480; 90715; A9270; J3490